=== PATIENT | female | born 1965 | race Caucasian/White ===

== ENCOUNTER 2024-09-26 12:42 | Emergency (ER) | payer BC, SELFPAY ==
[2024-09-26 12:48] VITALS: BP 103/81
[2024-09-26 12:50] VITALS: BP 103/81
[2024-09-26 13:00] VITALS: BP 98/69
[2024-09-26 14:27] LABS: % Basophils 0.4 % (0-2); % Immature Granulocytes 0.4 % (0-0.5); % Lymphocytes 17.2 % (20.5-51.1); % Monocytes 10.8 % (1.7-9.3); % Neutrophils 69.2 % (42.2-75.2); Absolute Eosinophils 0.1 10^3/uL (0-0.7); Absolute Lymphocytes 1.2 10^3/uL (1.2-3.4); Absolute Monocytes 0.8 10^3/uL (0.1-0.6); Absolute Neutrophils 4.9 10^3/uL (1.4-6.5); Hematocrit 33.7 % (37.0-47.0); Hemoglobin 11.5 g/dL (12.0-16.0); Mean Corp Hgb Conc. 34.1 g/dL (33.0-37.0); Mean Corpuscular Hgb 27.2 pg (27.0-31.0); Mean Corpuscular Volume 79.7 fL (81.0-99.0); Mean Platelet Volume 9.4 fL (7.4-10.4); Nucleated Red Blood Cells % 0 %; Platelet Count 216 10^3/uL (130-400); Red Blood Cell Count 4.23 10^6/uL (4.20-5.40); Red Cell Dist. Width 14.4 % (11.5-14.5)
[2024-09-26 14:44] LABS: ALT (SGPT) 26 U/L (0-35); AST (SGOT) 69 U/L (14-36); Albumin 3.7 g/dl (3.5-5.0); Alkaline Phosphatase 59 U/L (38-126); Blood Urea Nitrogen 17 mg/dl (7-17); Calcium 9.1 mg/dl (8.4-10.2); Carbon Dioxide 27 mmol/L (22-30); Chloride 104 mmol/L (98-107); Glucose 87 mg/dl (70-99); Potassium 4.5 mmol/L (3.5-5.1); Sodium 139 mmol/L (135-145); Total Bilirubin 0.7 mg/dl (0.2-1.3); Total Protein 6.7 g/dl (6.3-8.2); eGFR > 60.00
[2024-09-26 14:46] VITALS: BP 122/93
--- NOTE | 2024-09-26 15:06 | ED.GENMED ---
History of Present Illness
<Erasmo Hairston PA-C - Last Filed: 09/26/24 15:46>
General
Chief Complaint: Fainting Sensation
Time Seen by Provider: 09/26/24 14:37
History of Present Illness
History of Present Illness:
Patient is a 59-year-old female with past medical history of Alisson's disease, anemia, history of low blood pressure on midodrine, and history of quadriplegia, here today with for evaluation of a period of unresponsiveness that began
earlier today while the patient was eating. Event was witnessed by the patient's in which he describes she was eating with a spoon and suddenly became unresponsive for approximately 1 minute. No seizure-like activity noted. does
not feel the patient lost consciousness ever. No tongue biting. Over the past couple of days patient has been at her baseline without acute problems or concerns noted. Currently, the patient is back to her baseline. Patient herself denies acute
complaints. No chest pain or difficulty breathing. No fevers or vomiting. No abdominal pain noted.
Past History
<Erasmo Hairston PA-C - Last Filed: 09/26/24 15:46>
Past History
ED Past Medical History: Other (quadrapelegia. Alisson's chorea)
ED Past Surgical History: Orthopedic
Social History
Tobacco: Non-smoker
Personal:
Living: with family
Employment: Disabled
Review of Systems
<Erasmo Hairston PA-C - Last Filed: 09/26/24 15:46>
Review of Systems
All Other Systems: ROS reviewed and negative except as documented in HPI and ROS
Phy Exam
<Erasmo Hairston PA-C - Last Filed: 09/26/24 15:46>
Physical Exam
Physical Exam:
GENERAL: Alert, in no apparent distress
NECK: Supple
ENT: Moist mucosa.
CARDIAC: Regular rate and rhythm.
LUNGS: Clear breath sounds bilaterally, no acute respiratory distress, no wheezes/rales/rhonchi.
ABDOMEN: Soft, without focal tenderness, no r/g, colostomy bag in place, no evidence of infection
NEUROLOGICAL: Alert and oriented, unable to move extremities secondary to Quadraplegia history
SKIN: Warm and dry, skin intact.
MUSCULOSKELETAL: No edema, well perfused.
GENITOURINARY: Chou catheter in place. Draining yellow urine. No gross hematuria. No clots.
Course
<Erasmo Hairston PA-C - Last Filed: 09/26/24 15:46>
Orders/Labs/Results
Orders:
Orders
09/26/24 12:47
Electrocardiogram (*1) Urgent
Reason for Study: Fatigue / Weakness
EKG- Treatment ONCE
09/26/24 14:15
CMP [Comprehensive Metabolic Panel] Urgent
Complete Blood Count/With Diff Urgent
Abnormal Lab Results
09/26/24
14:15
Hgb 11.5 L g/dL
(12.0-16.0)
Hct 33.7 L %
(37.0-47.0)
MCV 79.7 L fL
(81.0-99.0)
Absolute Monos (auto) 0.8 H 10^3/uL
(0.1-0.6)
Lymphocytes % 17.2 L %
(20.5-51.1)
Monocytes % 10.8 H %
(1.7-9.3)
Creatinine 0.4 L mg/dL
(0.6-1.0)
AST 69 H U/L
(14-36)
09/26/24 14:15
09/26/24 14:15
Vital Signs
Initial and Last Documented VS:
Initial Vital Signs
BP
103/81
09/26/24 12:48
Last Documented Vital Signs
Pulse Resp BP Pulse Ox
72 14 122/93 99
09/26/24 15:00 09/26/24 15:00 09/26/24 14:46 09/26/24 13:45
<Rodrigo Parker DO - Last Filed: 09/26/24 15:14>
Orders/Labs/Results
Orders:
Orders
09/26/24 12:47
Electrocardiogram (*1) Urgent
Reason for Study: Fatigue / Weakness
EKG- Treatment ONCE
09/26/24 14:15
CMP [Comprehensive Metabolic Panel] Urgent
Complete Blood Count/With Diff Urgent
Abnormal Lab Results
09/26/24
14:15
Hgb 11.5 L g/dL
(12.0-16.0)
Hct 33.7 L %
(37.0-47.0)
MCV 79.7 L fL
(81.0-99.0)
Absolute Monos (auto) 0.8 H 10^3/uL
(0.1-0.6)
Lymphocytes % 17.2 L %
(20.5-51.1)
Monocytes % 10.8 H %
(1.7-9.3)
Creatinine 0.4 L mg/dL
(0.6-1.0)
AST 69 H U/L
(14-36)
09/26/24 14:15
09/26/24 14:15
Vital Signs
Initial and Last Documented VS:
Initial Vital Signs
BP
103/81
09/26/24 12:48
Last Documented Vital Signs
Pulse Resp BP Pulse Ox
72 14 122/93 99
09/26/24 15:00 09/26/24 15:00 09/26/24 14:46 09/26/24 13:45
<Erasmo Hairston PA-C - Last Filed: 09/26/24 15:46>
MDM/Problems Addressed
Differential Diagnosis Includes:
Patient is a 59-year-old female with past medical history of Humphreys's disease, anemia, history of low blood pressure on midodrine, and history of quadriplegia, here today with for evaluation of a period of unresponsiveness that began
earlier today. Overall, patient appears very well. Vital signs grossly within normal limits. Physical examination described above. Per the patient is at her baseline. Workup was initiated in triage which reveals no significant acute
abnormalities noted. Discussed providing additional workup but patient/ declined. They would like to go home. He is able to monitor the patient appropriately at home and closely follow-up with her doctor. I do think this is reasonable at
this time. Case was discussed with ED attending, Dr. Parker, who evaluated patient at bedside. Will set up for the patient to be discharged. Return precautions given. All questions answered. Stable for discharge
<Erasmo Hairston PA-C - Last Filed: 09/26/24 15:46>
*Critical Care Note
Total Time (30-74mins, 75-104mins- exclusive of procedures): Not Applicable
ED Attending Note
<Erasmo Hairston PA-C - Last Filed: 09/26/24 15:46>
-
Portions of this chart may have been created with voice recognition software.� Occasional wrong word or��sound alike� substitutions may have occurred due to the inherent limitations of voice recognition software.
<Rodrigo Parker, - Last Filed: 09/26/24 15:14>
ED Attending Note
Patient seen and examined by attending physician: Yes
I performed the substantive portion of visit, reviewed & personally made and approve the management plan that is documented in note by myself or NORMAN.: Yes
ED Attending Note:
Seen with PA examined independently 59-year-old female with Humphreys's, quadriplegic bedbound presents with a period of unresponsiveness, looks well here, patient and spouse are anxious to get home with her son is coming back from [place]
tomorrow where he is a resident, will try to get her home,
Discharge Plan
Departure
Patient Disposition: Home (Routine Discharge)
Date of Disposition: 09/26/24
Time of Disposition: 15:19
Patient with high blood pressure during this ER visit?: No
Condition: Fair
Covid-19: Not Applicable
Discharge Problem:
Altered mental status
Prescriptions:
No Action
multivitamin [Daily Multiple] 1 EACH tablet
1 ea PO DAILY
sennosides [senna] 8.6 MG tablet
8.6 mg PO .1200
donepezil 10 MG tablet
10 mg PO HS
famotidine 20 MG tablet
20 mg PO DAILY
vitamin A 10,000 UNIT capsule
10,000 unit PO DAILY
ascorbic acid (vitamin C) [Vitamin C] 500 MG tablet
500 mg PO DAILY
diazepam 2 MG tablet
8 mg PO QPM
baclofen 10 MG tablet
10 mg PO .0900,1300,1700,2100
docusate sodium 100 MG capsule
100 mg PO DAILY
fludrocortisone 0.1 MG tablet
0.1 mg PO DAILY
vitamin E 400 UNIT capsule
400 unit PO DAILY
midodrine 10 MG tablet
10 mg PO .0700,1200,1700
escitalopram oxalate 10 MG tablet
10 mg PO DAILY
aripiprazole 10 MG tablet
10 mg PO DAILY
dabigatran etexilate [Pradaxa] 150 MG capsule
150 mg PO BID
Lactobacillus acidophilus [Probiotic] 1 EACH capsule
1 ea PO DAILY
Enema
1 dose OK HS
Patient Comments:
enemeez mini enema
amoxicillin-pot clavulanate [Augmentin] 1 EACH tablet
1 ea PO BID Qty: 8 0RF
Myrbetriq 50 mg tablet extended release 24 hr
50 mg PO DAILY Qty: 20 0RF
Referrals:
Jj Abel MD [Family Provider] - Follow up in 2-3 days
Activity Restrictions/Additional Instructions:
You were seen today for evaluation after a brief change in mental status.
Your workup today is largely unremarkable and consistent with your baseline.
We are discharging you at this time with recommendations to closely follow-up with your doctor within the next 2 to 3 days for close reevaluation.
Return to the emergency department for any new, worsening, or concerning symptoms.
Interventions
Interventions:
*Risk Screen - Suicide Last Done: 09/26/24 12:48
*General Assessment Last Done: 09/26/24 12:48
*Neglect/Abuse Screening Last Done: 09/26/24 12:48
ED- Fall Risk Assessment Last Done: 09/26/24 15:44
*ED COVID-19 Vaccine History Last Done: 09/26/24 12:48
*Nursing Disposition Last Done: 09/26/24 15:44
ED- Cardiac Assessment Last Done: 09/26/24 12:53
ED- Neurological Assessment Last Done: 09/26/24 12:53
Discharge Date and Time
Print Language: CROATIAN
== END 2024-09-26 15:52 | disposition home or self-care (01) ==
LOC: EMR 12:42
PROVIDERS: EMERGENCY PHYSICIAN Emergency Medicine; FAMILY PHYSICIAN Family Medicine
DX: R41.82 Altered mental status, unspecified (principal); G10 Huntington's disease; G82.50 Quadriplegia, unspecified
CPT/HCPCS: 99283; 80053; 85025; 93005